=== PATIENT | male | born 2005 | race Caucasian/White ===

== ENCOUNTER 2023-07-27 20:53 | Emergency (ER) | payer OTHER ==
[2023-07-27] MEDS ORDERED: Midazolam HCl 2 mg/2 ml Vial ONE (21:05)
[2023-07-27] MEDS ORDERED: fentaNYL 50 mcg/mL 1 mL Vial ONE ×2 (21:35)
== END 2023-07-27 22:37 | disposition home or self-care (01) ==
LOC: ERS 20:53
DX: S43.015A Anterior dislocation of left humerus, initial encounter (principal); W18.30XA Fall on same level, unspecified, initial encounter
CPT/HCPCS: 23650; 96374; 96375; J2250; J3010